=== PATIENT | female | born 1955 | race Two or more races ===

== ENCOUNTER 2022-06-15 07:57 | Day surgery (SDC) | payer OTHER ==
[~2022-06-15] VITALS: Ht 160 cm; Wt 52.1 kg
[~2022-06-15 07:57] MED LIST: ATEN-60 PO; SIMV-8 PO
[2022-06-15] MEDS ORDERED: IODIXANOL 320MG/ML 100ML BTL IV ONE (10:29)
[2022-06-15] MEDS ORDERED: LIDOCAINE 2%HCL (LOCAL ANESTH.) INJ 20ML MDV ONE (10:29)
[2022-06-15] MEDS ORDERED: HEPARIN SODIUM (PORCINE) 5000 UNITS/ML 1ML VIAL ONE (10:33)
[2022-06-15] MEDS ORDERED: ANGIOMAX 250 MG VIAL IV ONE (10:33)
[2022-06-15] MEDS ORDERED: SODIUM CHL 0.9% 0 ML ONE (10:34)
[2022-06-15] MEDS ORDERED: VERAPAMIL 2.5MG/ML INJ 2ML VIAL IV ONE (10:34)
[2022-06-15] MEDS ORDERED: fentaNYL CITRATE 100 MCG/2 ML VL ONE (10:34)
[2022-06-15] MEDS ORDERED: MIDAZOLAM HCL 2MG/2ML 2ml VIAL (1mg/ml) ONE (10:34)
[2022-06-15] MEDS ORDERED: NITROGLYCERIN 5MG/ML 10ML VIAL IV ONE (10:38)
[2022-06-15] MEDS ORDERED: SODIUM CHL 0.9% 50 ML ONE (10:38)
== END 2022-06-15 14:10 | disposition home or self-care (01) ==
LOC: CATH 07:57
PROVIDERS: ATTEND Internal Medicine
DX: R94.31 Abnormal electrocardiogram [ECG] [EKG] (principal); I25.118 Atherosclerotic heart disease of native coronary artery with other forms of angina pectoris; I44.7 Left bundle-branch block, unspecified; I10 Essential (primary) hypertension; E78.5 Hyperlipidemia, unspecified; Z20.822 Contact with and (suspected) exposure to COVID-19
CPT/HCPCS: 93458; C1769; C1894; J1644; J2250; J3010; J7030; Q9967; U0003; 99152; 99153; J3490